=== PATIENT | female | born 1995 | race African-American/Black ===

== ENCOUNTER 2020-10-15 18:49 | Emergency (ER) | payer SELFPAY ==
[2020-10-15] MEDS ORDERED: KETOROLAC TROMETHAMINE INJ/PF 30 MG/1 ML SDV IV ONE (19:23)
[2020-10-15] MEDS ORDERED: ACETAMINOPHEN 325 MG TABLET PO ONE (19:23)
[2020-10-15] MEDS ORDERED: NORMAL SALINE 1000 ML 1,000 ML IV ONE ×2 (19:25→21:10)
--- NOTE | 2020-10-15 19:25 | ER Document Report ---
ED Medical Screen (RME) - General Stated Complaint: FEVER BODY PAIN HEADACHE Time Seen by Provider: 10/15/20 19:08 Information source: Patient Notes: Patient is a 25-year-old female comes emergency room complaint of being achy hot and chilling states she has had a fever because she knows she has been cold all day. She started with this yesterday. She denies any cough congestion runny nose dysuria shortness of breath or abdominal pain. But patient states she thinks she might have the flu/or pneumonia. She states she did not get her flu shot this year. She was tested for the coronavirus about 4 months ago and was negative at that time. She denies any known contacts with any coronavirus positive people. Patient states she hurts all over her body right now. Last menstrual period was 16 September. Patient does state that she smokes. Physical examination shows patient to be a well-nourished well-developed 25-year-old female no apparent distress but does appear appear somewhat uncomfortable and mildly ill. Cardiac: Patient is tachycardic at 123 bpm on monitor with no murmur auscultated. Lungs: Bilateral breath sounds are decreased throughout no rhonchi rales or wheeze. HEENT: Examination head and upper airway show nasal mucosa be mildly erythematous and edematous but no rhinorrhea or congestion noted. Posterior pharynx shows no erythema no exudates no encroachment upon the uvula and or erythema of the uvula although patient does show a fever blister on her right upper lip. I have greeted and performed a rapid initial assessment of this patient. A comprehensive ED assessment and evaluation of the patient, analysis of test results and completion of the medical decision making process will be conducted by additional ED providers. Dictation of this chart was performed using voice recognition software; therefore, there may be some unintended grammatical errors. Physical Exam - Vital signs Vitals: Temp Pulse Resp BP Pulse Ox 100.5 F H 123 H 18 127/75 H 98 10/15/20 18:56 10/15/20 18:56 10/15/20 18:56 10/15/20 18:56 10/15/20 18:56 Course - Vital Signs Vital signs: Temp Pulse Resp BP Pulse Ox 100.5 F H 123 H 18 127/75 H 98 10/15/20 18:56 10/15/20 18:56 10/15/20 18:56 10/15/20 18:56 10/15/20 18:56
--- NOTE | 2020-10-15 20:22 | RADIOLOGY REPORT (SQ) ---
EXAM DESCRIPTION: XR CHEST 1 VIEW COMPLETED DATE/TME: 10/15/2020 20:08 EXAM: CHEST SINGLE VIEW CLINICAL INDICATION: 25-year-old female with fever. TECHNIQUE: Single view, AP portable chest was obtained. COMPARISON: None. FINDINGS: Unremarkable cardiac and mediastinal silhouette. Heart size is normal. RIGHT chest wall port catheter tip terminates at the SVC RIGHT atrial junction. Small focal round opacity is identified at the level of the LEFT upper lobe measuring up to 3 cm raising the concern for consolidation secondary to infectious process, however the possibility of neoplasm cannot be excluded in the correct clinical setting. The remaining lungs are otherwise clear without focal opacity, pneumothorax or pleural effusions. The visualized bones are within normal limits. IMPRESSION: LEFT upper lobe opacity with differential and details as above.
[2020-10-15] MEDS ORDERED: IBUPROFEN 600 MG TABLET PO ONE (21:10)
[2020-10-15 21:12] LABS: ABSOLUTE LYMPHOCYTES (AUTO) 0.8 10^3/uL (0.5-4.7); ABSOLUTE MONOCYTES (AUTO) 0.9 10^3/uL (0.1-1.4); ABSOLUTE NEUT (AUTO) 4.6 10^3/uL (1.7-8.2); BASOPHILS % (AUTO) 0.7 % (0-2); HEMATOCRIT 35.5 % (36.0-47.0); HEMOGLOBIN 11.3 g/dL (12.0-15.5); LYMPHOCYTES % (AUTO) 13.1 % (13-45); MEAN CORPUSCULAR HEMOGLOBIN 28.6 pg (27.0-33.4); MEAN CORPUSCULAR HGB CONC 31.7 g/dL (32.0-36.0); MEAN CORPUSCULAR VOLUME 90 fl (80-97); MONOCYTES % (AUTO) 13.6 % (3-13); PLATELET COUNT 125 10^3/uL (150-450); RED BLOOD COUNT 3.95 10^6/uL (3.72-5.28); RED CELL DISTRIBUTION WIDTH 21.4 % (11.5-14.0); SEGMENTED NEUTROPHILS % (AUTO) 72.6 % (42-78); TOTAL CELLS COUNTED % (AUTO) 100 %; WHITE BLOOD COUNT 6.3 10^3/uL (4.0-10.5)
[2020-10-15 21:28] LABS: A TYPE INFLUENZA AG NEGATIVE (NEGATIVE); ALBUMIN 4.2 g/dL (3.5-5.0); ALKALINE PHOSPHATASE 162 U/L (38-126); ANION GAP 15 (5-19); ASPARTATE AMINO TRANSFERASE 54 U/L (14-36); B INFLUENZA AG NEGATIVE (NEGATIVE); BILIRUBIN,DIRECT 0.2 mg/dL (0.0-0.4); BILIRUBIN,TOTAL 0.5 mg/dL (0.2-1.3); BLOOD UREA NITROGEN 15 mg/dL (7-20); CALCIUM 9.7 mg/dL (8.4-10.2); CARBON DIOXIDE 19 mmol/L (22-30); CHLORIDE 96 mmol/L (98-107); CREATINE KINASE 118 U/L (30-135); POTASSIUM 5.2 mmol/L (3.6-5.0); TOTAL PROTEIN 7.3 g/dL (6.3-8.2)
[2020-10-15 21:51] LABS: GLUCOSE 553 mg/dL (75-110)
[2020-10-15 21:52] LABS: APPEARANCE,URINE CLEAR; BILIRUBIN,URINE NEGATIVE (NEGATIVE); COLOR,URINE STRAW; GLUCOSE, URINE >=500 mg/dL (NEGATIVE); KETONES,URINE 80 mg/dL (NEGATIVE); LEUKOCYTE ESTERASE,URINE NEGATIVE (NEGATIVE); NITRITE,URINE NEGATIVE (NEGATIVE); PROTEIN,URINE NEGATIVE (NEGATIVE); URINE SPECIFIC GRAVITY 1.023; UROBILINOGEN,URINE NEGATIVE mg/dL (<2.0)
[2020-10-15] MEDS ORDERED: INSULIN LISPRO 100 UNIT/ML 3 ML VIAL SUBCUT ONE (22:30)
[2020-10-15 22:42] LABS: VENOUS BLOOD BASE EXCESS -10.4 mmol/L; VENOUS BLOOD HCO3 15.4 mmol/L (20-32); VENOUS BLOOD PCO2 33.9 mmHg (35-63); VENOUS BLOOD PH 7.28 (7.30-7.42)
--- NOTE | 2020-10-16 00:44 | RADIOLOGY REPORT (SQ) ---
CT ANGIOGRAM CHEST WITH IV CONTRAST: 10/15/2020 11:24 PM SLIP FEEDER HISTORY: 25-year old patient with concern for left upper lobe mass. TECHNIQUE: Postcontrast CT through the chest was performed per protocol for CT angiography. 3D Multiplanar reformations were performed at the workstation. Reconstructed sagittal and coronal images were also obtained through the chest. This exam was performed according to our departmental dose-optimization program, which includes automated exposure control, adjustment of the mA and/or KV according to the patient's size and/or use of iterative reconstruction technique. COMPARISON: None available FINDINGS: The heart size is enlarged. No large pericardial effusion is seen. No significant mediastinal, supraclavicular, or axillary lymphadenopathy is seen. The thoracic aorta is within normal limits of size. No filling defects are seen within the pulmonary arteries to suggest a pulmonary artery embolism. The main pulmonary artery is at the upper limits of normal in size. A right subclavian [id number]-Synb catheter tip projects near the SVC/right atrial junction. The thyroid gland is unremarkable. The central tracheobronchial tree is patent. There are diffuse groundglass changes within the lungs subpleural masslike opacity measuring at least 3.3 x 2.4 cm at the left upper lobe. No large effusion is seen. There is no evidence of a pneumothorax. The bones demonstrate no suspicious lytic or blastic lesion. The visualized portions of the upper abdomen appear grossly unremarkable. There is elevation of the right hemidiaphragm noted. IMPRESSION: There is a round masslike opacity at the left upper lobe which has some peripheral groundglass attenuation. This may reflect infection, though interval follow-up is recommended to exclude a mass. There are diffuse groundglass changes within the lungs which may reflect edema, inflammation, or infection. No filling defect is seen to suggest a pulmonary artery embolism.
--- NOTE | 2020-10-16 01:18 | ER Document Report ---
ED General - General Chief Complaint: Fever Stated Complaint: FEVER BODY PAIN HEADACHE Time Seen by Provider: 10/15/20 19:08 Notes: 25-year-old female with type 1 diabetes presents with 2 days of fever, diffuse myalgia, nausea, diffuse weakness and generalized malaise. Patient has been buying insulin without a prescription from the pharmacy and has not seen a doctor anytime recently. Had several episodes of vomiting prior to arrival and her glucometer was reading "high" but then says it came down prior to arriving in the ED but patient still felt "lousy ". Patient has had similar symptoms when she has had infections that have precipitated DKA and/or hyperglycemia. Patient denies any cough, chest pain, shortness of breath, sick contacts, abdominal or pelvic pain, diarrhea or constipation, dysuria, frequency, urgency, neck pain or stiffness, headache, drug use - Related Data Allergies/Adverse Reactions: fentanyl Allergy (Verified 10/15/20 20:15) ketorolac [From Toradol] Allergy (Verified 10/15/20 20:15) metoclopramide [From Reglan] Adverse Reaction (Verified 10/15/20 20:15) ondansetron [From Zofran] Adverse Reaction (Verified 10/15/20 20:16) Home Medications: insulin Past Medical History - General Information source: Patient - Social History Smoking Status: Current Every Day Smoker Family History: Reviewed & Not Pertinent Endocrine Medical History: Reports: Hx Diabetes Mellitus Type 1 Review of Systems - Review of Systems Notes: REVIEW OF SYSTEMS: CONSTITUTIONAL : + fever, chills, or sweats. EENT: Denies recent cold/sinus symptoms, denies throat pain CARDIOVASCULAR: Denies chest pain, KEMAL RESPIRATORY: Denies cough, denies shortness of breath. GASTROINTESTINAL: Denies abdominal pain, +nausea/vomiting. GENITOURINARY: Denies difficulty urinating, painful urination. FEMALE GENITOURINARY: Denies abnormal vaginal bleeding, vaginal discharge. MUSCULOSKELETAL: Denies neck pain, injuries SKIN: Denies rash or skin lesions. HEMATOLOGIC : Denies easy bruising or bleeding. LYMPHATIC: Denies swollen, enlarged glands. NEUROLOGICAL: Denies headache, denies change in gait. PSYCHIATRIC: Denies anxiety or stress or depression. Physical Exam - Vital signs Vitals: Temp Pulse Resp BP Pulse Ox 100.5 F H 123 H 18 127/75 H 98 10/15/20 18:56 10/15/20 18:56 10/15/20 18:56 10/15/20 18:56 10/15/20 18:56 - Notes Notes: PHYSICAL EXAMINATION: GENERAL: Uncomfortable appearing young adult female in no acute distress HEAD: Atraumatic, normocephalic. EYES: Pupils equal round and appropriate constriction, sclera anicteric, conjunctiva are normal. ENT: nares patent, dry mucous membranes. NECK/BACK: Normal range of motion, supple without lymphadenopathy, no midline C/T/L/S spinal tenderness or deformity LUNGS: Breath sounds clear to auscultation bilaterally and equal. No wheezes rales or rhonchi. Normal respiratory rate and effort HEART: Mildly tachycardic rate with regular rhythm without murmurs, rubs, or gallops ABDOMEN: Soft, nontender, no guarding, no masses, no CVAT EXTREMITIES: Normal range of motion, no pitting or edema. No cyanosis. NEUROLOGICAL: Awake, alert, conversing appropriately, moves all extremities spontaneously. PSYCH: Normal mood, normal affect. SKIN: Warm, Dry, normal turgor, no rashes or lesions noted. Course - Re-evaluation Re-evalutation: 10/16/20 01:57 Patient with vomiting and hyperglycemia associated with few days of constellation of symptoms concerning for possible COVID-19 infection versus influenza. Rule out DKA, significant electrolyte abnormalities, rhabdomyolysis. Patient with diffuse lower bilateral back pain but also has diffuse body pain and no urinary symptoms or CVA tenderness and no midline back pain and no neuro symptoms. patient's tachycardia improved with fever control and hydration and now has normal pulse rate. Patient had no PE symptoms but patient's chest x-ray showed a possible mass/opacification and given likely COVID-19 infection and hypercoagulability associated with this disease I obtained a CTA chest for rule out PE to further evaluate this opacification and rule out a pulmonary infarct causing it. CTA chest showed diffuse groundglass opacities. Patient's labs all borderline for DKA and most likely represent dehydration from fever and hyperglycemia, but given that patient has no outpatient follow-up and has poor diabetes management and high ability to fall into full-blown DKA if discharged I presented patient to Dr. Maher who has accepted patient to observation. Patient feels improved after fluids, no additional episodes of vomiting in ED, vital signs normal, exam improved with patient more comfortable now and tachycardia resolved. The patient was evaluated during the global COVID-19 pandemic and that diagnosis was suspected/considered upon their initial presentation. Their evaluation, treatment and testing was consistent with current guidelines for patients who present with complaints or symptoms that may be related to COVID-19. - Vital Signs Vital signs: Temp Pulse Resp BP Pulse Ox 99.2 F 123 H 18 127/75 H 98 10/15/20 22:26 10/15/20 18:56 10/15/20 18:56 10/15/20 18:56 10/15/20 18:56 - Laboratory Result Diagrams: 10/15/20 20:40 10/15/20 20:40 Laboratory results interpreted by me: 10/15/20 10/15/20 10/15/20 20:40 20:40 21:25 Hgb 11.3 L Hct 35.5 L MCHC 31.7 L RDW 21.4 H Plt Count 125 L [place] % (Auto) 13.6 H VBG pH VBG pCO2 VBG HCO3 Sodium 129.6 L Potassium 5.2 H Chloride 96 L Carbon Dioxide 19 L Glucose 553 H* AST 54 H ALT 53 H Alkaline Phosphatase 162 H Urine Glucose (UA) >=500 H Urine Ketones 80 H Urine Blood SMALL H 10/15/20 22:05 Hgb Hct MCHC RDW Plt Count [place] % (Auto) VBG pH 7.28 L VBG pCO2 33.9 L VBG HCO3 15.4 L Sodium Potassium Chloride Carbon Dioxide Glucose AST ALT Alkaline Phosphatase Urine Glucose (UA) Urine Ketones Urine Blood Discharge - Discharge Clinical Impression: Hyperglycemia, Dehydration, COVID-19 determined by clinical diagnostic criteria Disposition: ADMITTED OBSERVATION Admitting Provider: [facility] Unit Admitted: Medical Floor
[2020-10-16] MEDS ORDERED: ACETAMINOPHEN 325 MG TABLET PO PRN (03:29)
[2020-10-16] MEDS ORDERED: DEXTROSE 40% GEL 15 GM TUBE PO PRN ×2 (03:38)
[2020-10-16] MEDS ORDERED: GLUCAGON,HUMAN RECOMB 1 MG INJ IM PRN (03:38)
[2020-10-16] MEDS ORDERED: DEXTROSE 50%-WATER 25 GM/50 ML DISP.SYRIN IV PRN ×2 (03:38)
[2020-10-16] MEDS ORDERED: INSULIN GLARGINE,HUM.REC.ANLOG 1,000 UNIT/10 ML VIAL SUBCUT SCH (03:45)
--- NOTE | 2020-10-16 03:49 | PDOC H&P ---
History of Present Illness Admission Date/PCP: 10/16/20 02:20 Patient complains of: Generalized body aches History of Present Illness: MICHAEL VASQUEZ is a 25 year old female with a history of type 1 diabetes now presents with 2 days duration of generalized body aches, nausea, vomiting, abdominal pain, fever of 100.3. She states that she has been feeling generally feeling well and did not take her insulin for the past 24 hours. Currently she has no primary care and she has not been able to afford her insulin. Mostly she gets insulin [id number]. She states at the place where her sister works many of her coworkers have been diagnosed with COVID-19 but her sister has not been diagnosed or have any symptoms. She denies any chest pain, shortness of breath, palpitation, dizziness dysuria, diarrhea, hematemesis, melena, hematochezia or any skin rash. Past Medical History Endocrine Medical History: Reports: Diabetes Mellitus Type 1 Social History Information Source: Patient Smoking Status: Current Every Day Smoker Frequency of Alcohol Use: None Drugs: None - Advance Directive Resuscitation Status: Full Code Family History Family History: Reviewed & Not Pertinent Parental Family History Reviewed: Yes Children Family History Reviewed: Yes Sibling(s) Family History Reviewed.: Yes Medication/Allergy Allergies/Adverse Reactions: fentanyl Allergy (Verified 10/15/20 20:15) ketorolac [From Toradol] Allergy (Verified 10/15/20 20:15) metoclopramide [From Reglan] Adverse Reaction (Verified 10/15/20 20:15) ondansetron [From Zofran] Adverse Reaction (Verified 10/15/20 20:16) Review of Systems Constitutional: PRESENT: as per HPI, fatigue, fever(s), weakness. ABSENT: anorexia, chills, headache(s), night sweats Eyes: ABSENT: visual disturbances Ears: ABSENT: hearing changes Nose, Mouth, and Throat: ABSENT: headache(s), mouth pain, sore throat Cardiovascular: ABSENT: chest pain, dyspnea on exertion, edema, orthropnea, palpitations Respiratory: ABSENT: cough, hemoptysis Gastrointestinal: PRESENT: as per HPI Genitourinary: ABSENT: dysuria, hematuria Musculoskeletal: ABSENT: joint swelling Integumentary: ABSENT: rash, wounds Neurological: ABSENT: abnormal gait, abnormal speech, confusion, dizziness, focal weakness, syncope Psychiatric: ABSENT: anxiety, depression, homidical ideation, suicidal ideation Endocrine: PRESENT: polydipsia, polyuria. ABSENT: cold intolerance, heat intolerance Hematologic/Lymphatic: ABSENT: easy bleeding, easy bruising Physical Exam Vital Signs: Temp Pulse Resp BP Pulse Ox 98.2 F 99 16 126/80 H 97 10/16/20 01:08 10/16/20 01:08 10/16/20 01:08 10/16/20 01:08 10/16/20 01:08 Intake & Output 10/14/20 10/15/20 10/16/20 06:59 06:59 06:59 Intake Total 1999 Balance 1999 Weight 61.235 kg Additional comments: GENERAL APPEARANCE: Alert and oriented x3, in no acute distress HEENT: Normocephalic and atraumatic. No scleral icterus. Dry oral mucosa NECK: Supple. No lymphadenopathy or tenderness. No JVD CHEST: Symmetric. Nontender to palpation. LUNGS: Clear with good air entry bilaterally. No wheezing or crackles HEART: Regular rate and rhythm with normal S1 and S2. No murmurs, gallops, or rubs. ABDOMEN: Flat, soft, active bowel sounds, no direct or rebound tenderness. No organomegaly detected. No CVA tenderness EXTREMITIES: No cyanosis, clubbing, or edema. MUSCULOSKELETAL: No deformity, atrophy or swelling noted PSYCHIATRIC: Recent and remote memory is intact. Appropriate mood and affect. SKIN: Warm, dry, and well perfused. No lesions or rashes are noted. NEUROLOGIC: No focal sensory or motor deficits are noted. Results Laboratory Results: 10/15/20 20:40 10/15/20 20:40 10/15/20 10/15/20 10/15/20 20:40 20:40 20:40 WBC 6.3 RBC 3.95 Hgb 11.3 L Hct 35.5 L MCV 90 MCH 28.6 MCHC 31.7 L RDW 21.4 H Plt Count 125 L Seg Neutrophils % 72.6 VBG pH VBG pCO2 VBG HCO3 VBG Base Excess Sodium 129.6 L Potassium 5.2 H Chloride 96 L Carbon Dioxide 19 L Anion Gap 15 BUN 15 Creatinine 0.81 Est GFR ( Amer) > 60 Glucose 553 H* Lactic Acid 1.0 Calcium 9.7 Total Bilirubin 0.5 AST 54 H Alkaline Phosphatase 162 H Total Protein 7.3 Albumin 4.2 Urine Color Urine Appearance Urine pH Ur Specific [place] Urine Protein Urine Glucose (UA) Urine Ketones Urine Blood Urine Nitrite Ur Leukocyte Esterase Urine WBC (Auto) Urine RBC (Auto) 10/15/20 10/15/20 21:25 22:05 WBC RBC Hgb Hct MCV MCH MCHC RDW Plt Count Seg Neutrophils % VBG pH 7.28 L VBG pCO2 33.9 L VBG HCO3 15.4 L VBG Base Excess -10.4 Sodium Potassium Chloride Carbon Dioxide Anion Gap BUN Creatinine Est GFR ( Amer) Glucose Lactic Acid Calcium Total Bilirubin AST Alkaline Phosphatase Total Protein Albumin Urine Color STRAW Urine Appearance CLEAR Urine pH 6.0 Ur Specific [place] 1.023 Urine Protein NEGATIVE Urine Glucose (UA) >=500 H Urine Ketones 80 H Urine Blood SMALL H Urine Nitrite NEGATIVE Ur Leukocyte Esterase NEGATIVE Urine WBC (Auto) 0 Urine RBC (Auto) 1 10/15/20 20:40 Creatine Kinase 118 Impressions: Chest X-Ray 10/15/20 19:24 IMPRESSION: LEFT upper lobe opacity with differential and details as above. Chest/Abdomen CTA 10/15/20 23:25 IMPRESSION: There is a round masslike opacity at the left upper lobe which has some peripheral groundglass attenuation. This may reflect infection, though interval follow-up is recommended to exclude a mass. There are diffuse groundglass changes within the lungs which may reflect edema, inflammation, or infection. No filling defect is seen to suggest a pulmonary artery embolism. Assessment and Plan - Diagnosis (1) Type 1 diabetes mellitus with hyperglycemia Is this a current diagnosis for this admission?: Yes Plan: Random blood sugar on presentation was 533 VBG showed a pH of 7.28, anion gap was 16, bicarb 19 taken was positive Patient at this point borderline to get into DKA Received 2 L of IV fluid at the ED Restarted her on Lantus 25 nightly Sliding scale insulin Hypoglycemia protocol, Accu-Cheks Diabetic diet Closely monitor BMP (2) Suspected COVID-19 virus infection Is this a current diagnosis for this admission?: Yes Plan: Patient presents with symptoms concerning for COVID-19 Sample has been obtained at the ED and follow-up with the results Currently well on room air Continue supportive treatment for fever (3) Nausea and vomiting Is this a current diagnosis for this admission?: Yes Plan: Likely due to hyperglycemia Promethazine 12.5 orally as needed (4) Volume depletion Is this a current diagnosis for this admission?: Yes Plan: Due to GI loss from nausea and vomiting and osmotic diuresis Patient has been hydrated with 2 L of crystalloid fluid at the ED Continue IV hydration at 125 mL/h (5) Mass of upper lobe of left lung Is this a current diagnosis for this admission?: Yes Plan: CT chest showed left upper lobe opacity with surrounding area of groundglass likely due to an infectious process Patient denies any cough, hemoptysis or any change in her weight recently and is a non-smoker Could be due to aspiration vs bacterial pneumonia Currently on Levaquin Patient will need follow-up imaging per radiology recommendation - Time Time Spent with patient: 35 or more minutes Total Critical Time (Minutes): 40 Medications reviewed and adjusted accordingly: Yes Anticipated Discharge Disposition: Home, Self Care Anticipated Discharge Timeframe: within 48 hours - Inpatient Certification Based on my medical assessment, after consideration of the patient's comorbidities, presenting symptoms, or acuity I expect that the services needed warrant INPATIENT care.: Yes I certify that my determination is in accordance with my understanding of Medicare's requirements for reasonable and necessary INPATIENT services [42 CFR 412.3e].: Yes Medical Necessity: Need Close Monitoring Due to Risk of Patient Decompensation, Need For IV Fluids, Need for IV Antibiotics, Risk of Complication if Not Cared For in Hospital Post Hospital Care: D/C or Transfer Summary
[2020-10-16] MEDS: INSULIN REG, HUMAN 100 UNIT/ML 3 ML VIAL (PYX) SUBCUT SCH ×4 (03:59→16:35)
[2020-10-16] MEDS ORDERED: LEVOFLOXACIN 750 MG/D5W RTU 750 MG/150 ML RTUPB IV SCH (04:00)
[2020-10-16] MEDS ORDERED: PROMETHAZINE HCL INJ 25 MG/1 ML VIAL ONE (06:28)
[2020-10-16] MEDS ORDERED: PROMETHAZINE HCL INJ 25 MG/1 ML VIAL IV ONE (06:30)
[2020-10-16] MEDS: NORMAL SALINE 1000 ML 1,000 ML IV PRN ×2 (06:41→16:13)
[2020-10-16 06:59] LABS: ANION GAP 11 (5-19); BLOOD UREA NITROGEN 12 mg/dL (7-20); CALCIUM 8.3 mg/dL (8.4-10.2); CARBON DIOXIDE 20 mmol/L (22-30); CHLORIDE 103 mmol/L (98-107); GLUCOSE 256 mg/dL (75-110); POTASSIUM 4.3 mmol/L (3.6-5.0)
[2020-10-16] MEDS ORDERED: MORPHINE SULFATE 10 MG/ML INJ IV ONE (07:00)
[2020-10-16] MEDS ORDERED: ENOXAPARIN SODIUM INJ 40 MG/0.4 ML DISP.SYRIN SUBCUT SCH (10:00)
[2020-10-16] MEDS ORDERED: FAMOTIDINE 20 MG TABLET PO SCH (10:00)
[2020-10-16] MEDS ORDERED: KETOROLAC TROMETHAMINE INJ/PF 30 MG/1 ML SDV IV ONE (11:57)
[2020-10-16] MEDS ORDERED: ONDANSETRON HCL INJ/PF 4 MG/2 ML SDV IV PRN (11:58)
[2020-10-16] MEDS ORDERED: MORPHINE SULFATE 10 MG/ML INJ IV PRN (15:33)
[2020-10-16] MEDS ORDERED: PROMETHAZINE HCL INJ 25 MG/1 ML VIAL IV PRN (15:34)
--- NOTE | 2020-10-16 21:53 | PDOC DISCHARGE SUMMARY ---
Impression - Admit/DC Date/PCP Admission Date/Primary Care Provider: 10/16/20 02:20 Discharge Date: 10/16/20 - Discharge Diagnosis (1) COVID-19 determined by clinical diagnostic criteria Is this a current diagnosis for this admission?: Yes (2) Dehydration Is this a current diagnosis for this admission?: Yes (3) Mass of upper lobe of left lung Is this a current diagnosis for this admission?: Yes (4) Nausea and vomiting Is this a current diagnosis for this admission?: Yes (5) Suspected COVID-19 virus infection Is this a current diagnosis for this admission?: Yes (6) Type 1 diabetes mellitus with hyperglycemia Is this a current diagnosis for this admission?: Yes (7) Volume depletion Is this a current diagnosis for this admission?: Yes - Additional Information Resuscitation Status: Full Code Discharge Diet: Diabetic Discharge Activity: Other - Usual precautions for COVID-19, such as wearing a mask, social distancing, handwashing, self-isolation Home Medications: Insulin Glargine,Hum.rec.anlog [Lantus Insulin 100 Unit/1 ml 10 ml] 20 unit SUBCUT DAILY 10/16/20 Insulin Lispro [Humalog Insulin (Lispro) 100 unit/mL] 15 unit SUBCUT AC 10/16/20 History of Present Illiness History of Present Illness: MICHAEL VASQUEZ is a 25 year old female with a history of type 1 diabetes now presents with 2 days duration of generalized body aches, nausea, vomiting, abdominal pain, fever of 100.3. She states that she has been feeling generally feeling well and did not take her insulin for the past 24 hours. Currently she has no primary care and she has not been able to afford her insulin. Mostly she gets insulin [id number]. She states at the place where her sister works many of her coworkers have been diagnosed with COVID-19 but her sister has not been diagnosed or have any symptoms. She denies any chest pain, shortness of breath, palpitation, dizziness dysuria, diarrhea, hematemesis, melena, hematochezia or any skin rash. Hospital Course Hospital Course: Her metabolic panel and blood glucose corrected quickly. She is no longer nauseated or vomiting. Her vital signs are stable and her pulse oximetry is in the upper 90s on room air. She denies any shortness of breath. She says that she has insulin, insulin syringes and supplies, and a blood glucose meter with test strips. She said she missed her insulin for a day. She is visiting from the [place] area and plans to return on Monday. At time of discharge she was only on Lantus and sliding scale like she is on at home. She is no longer nauseated or vomiting and was able to eat and drink without difficulty. I reviewed the warning signs for her breathing to which she should pay attention, and advised her to seek medical attention in the event that the symptoms occur. Her primary care provider is in [place] and I encouraged her to get a follow-up visit as soon as she is able, preferably within the next week. She was wanting to go home, and from a clinical standpoint she seems well enough to do so at this time. Physical Exam Vital Signs: Temp Pulse Resp BP Pulse Ox 98.1 F 99 14 135/85 H 98 10/16/20 17:00 10/16/20 01:08 10/16/20 19:00 10/16/20 18:18 10/16/20 19:00 Intake & Output 10/15/20 10/16/20 10/17/20 06:59 06:59 06:59 Intake Total 2150 1000 Output Total 150 Balance 2000 1000 Weight 61.235 kg General appearance: PRESENT: no acute distress, cooperative, thin Respiratory exam: PRESENT: clear to auscultation aleksandar, symmetrical, unlabored. ABSENT: accessory muscle use, chest wall tenderness, crackles, prolonged expiratory phas, rhonchi, tachypnea, wheezes Cardiovascular exam: PRESENT: RRR, +S1, +S2 Pulses: PRESENT: normal carotid pulses Vascular exam: PRESENT: normal capillary refill GI/Abdominal exam: PRESENT: normal bowel sounds, soft. ABSENT: distended, guarding, rebound, tenderness Extremities exam: ABSENT: clubbing, pedal edema Musculoskeletal exam: PRESENT: normal inspection. ABSENT: deformity Neurological exam: PRESENT: awake, oriented to person, oriented to place, oriented to time, oriented to situation, CN II-XII grossly intact. ABSENT: motor sensory deficit Psychiatric exam: PRESENT: appropriate affect, normal mood Skin exam: PRESENT: dry, warm Results Laboratory Results: WBC 6.3 10^3/uL (4.0-10.5) 10/15/20 20:40 RBC 3.95 10^6/uL (3.72-5.28) 10/15/20 20:40 Hgb 11.3 g/dL (12.0-15.5) L 10/15/20 20:40 Hct 35.5 % (36.0-47.0) L 10/15/20 20:40 MCV 90 fl (80-97) 10/15/20 20:40 MCH 28.6 pg (27.0-33.4) 10/15/20 20:40 MCHC 31.7 g/dL (32.0-36.0) L 10/15/20 20:40 RDW 21.4 % (11.5-14.0) H 10/15/20 20:40 Plt Count 125 10^3/uL (150-450) L 10/15/20 20:40 Lymph % (Auto) 13.1 % (13-45) 10/15/20 20:40 [place] % (Auto) 13.6 % (3-13) H 10/15/20 20:40 Eos % (Auto) 0.0 % (0-6) 10/15/20 20:40 Baso % (Auto) 0.7 % (0-2) 10/15/20 20:40 Absolute Neuts (auto) 4.6 10^3/uL (1.7-8.2) 10/15/20 20:40 Absolute Lymphs (auto) 0.8 10^3/uL (0.5-4.7) 10/15/20 20:40 Absolute Monos (auto) 0.9 10^3/uL (0.1-1.4) 10/15/20 20:40 Absolute Eos (auto) 0.0 10^3/uL (0.0-0.6) 10/15/20 20:40 Absolute Basos (auto) 0.0 10^3/uL (0.0-0.2) 10/15/20 20:40 Seg Neutrophils % 72.6 % (42-78) 10/15/20 20:40 D-Dimer 0.50 ug/mL (0.00-0.50) 10/15/20 22:05 VBG pH 7.28 (7.30-7.42) L 10/15/20 22:05 VBG pCO2 33.9 mmHg (35-63) L 10/15/20 22:05 VBG HCO3 15.4 mmol/L (20-32) L 10/15/20 22:05 VBG Base Excess -10.4 mmol/L 10/15/20 22:05 Sodium 133.7 mmol/L (137-145) L 10/16/20 06:08 Potassium 4.3 mmol/L (3.6-5.0) 10/16/20 06:08 Chloride 103 mmol/L (98-107) 10/16/20 06:08 Carbon Dioxide 20 mmol/L (22-30) L 10/16/20 06:08 Anion Gap 11 (5-19) 10/16/20 06:08 BUN 12 mg/dL (7-20) 10/16/20 06:08 Creatinine 0.68 mg/dL (0.52-1.25) 10/16/20 06:08 Est GFR ( Amer) > 60 (>60) 10/16/20 06:08 Est GFR (MDRD) Non-Af > 60 (>60) 10/16/20 06:08 Glucose 256 mg/dL (75-110) H 10/16/20 06:08 POC Glucose 213 mg/dL (70-110) H 10/16/20 20:12 Lactic Acid 1.0 mmol/L (0.7-2.1) 10/15/20 20:40 Calcium 8.3 mg/dL (8.4-10.2) L 10/16/20 06:08 Total Bilirubin 0.5 mg/dL (0.2-1.3) 10/15/20 20:40 Direct Bilirubin 0.2 mg/dL (0.0-0.4) 10/15/20 20:40 Neonat Total Bilirubin Not Reportable 10/15/20 20:40 Neonat Direct Bilirubin Not Reportable 10/15/20 20:40 Neonat Indirect Bili Not Reportable 10/15/20 20:40 AST 54 U/L (14-36) H 10/15/20 20:40 ALT 53 U/L (<35) H 10/15/20 20:40 Alkaline Phosphatase 162 U/L (38-126) H 10/15/20 20:40 Creatine Kinase 118 U/L (30-135) 10/15/20 20:40 Total Protein 7.3 g/dL (6.3-8.2) 10/15/20 20:40 Albumin 4.2 g/dL (3.5-5.0) 10/15/20 20:40 Urine Color STRAW 10/15/20 21:25 Urine Appearance CLEAR 10/15/20 21:25 Urine pH 6.0 (5.0-9.0) 10/15/20 21:25 Ur Specific [place] 1.023 10/15/20 21:25 Urine Protein NEGATIVE mg/dL (NEGATIVE) 10/15/20 21:25 Urine Glucose (UA) >=500 mg/dL (NEGATIVE) H 10/15/20 21:25 Urine Ketones 80 mg/dL (NEGATIVE) H 10/15/20 21:25 Urine Blood SMALL (NEGATIVE) H 10/15/20 21:25 Urine Nitrite NEGATIVE (NEGATIVE) 10/15/20 21:25 Urine Bilirubin NEGATIVE (NEGATIVE) 10/15/20 21:25 Urine Urobilinogen NEGATIVE mg/dL (<2.0) 10/15/20 21:25 Ur Leukocyte Esterase NEGATIVE (NEGATIVE) 10/15/20 21:25 Urine WBC (Auto) 0 /HPF 10/15/20 21:25 Urine RBC (Auto) 1 /HPF 10/15/20 21:25 Squamous Epi Cells Auto 1 /HPF 10/15/20 21:25 Urine Mucus (Auto) RARE /LPF 10/15/20 21:25 Urine Ascorbic Acid NEGATIVE (NEGATIVE) 10/15/20 21:25 Urine HCG, Qual NEGATIVE (NEGATIVE) 10/15/20 21:25 COVID-19 Source Cancelled 10/15/20 20:47 COVID-19 (YANI) Cancelled 10/15/20 20:47 Influenza A (Rapid) NEGATIVE (NEGATIVE) 10/15/20 20:40 Influenza A (RT-PCR) NEGATIVE (NEGATIVE) 10/15/20 20:47 Influenza B (Rapid) NEGATIVE (NEGATIVE) 10/15/20 20:40 Influenza B (RT-PCR) NEGATIVE (NEGATIVE) 10/15/20 20:47 RSV (RT-PCR) NEGATIVE (NEGATIVE) 10/15/20 20:47 SARS-CoV-2 Rap RNA(RT-PCR) POSITIVE (NEGATIVE) H 10/15/20 20:47 Group A Strep Rapid NEGATIVE (NEGATIVE) 10/15/20 21:25 Impressions: Chest X-Ray 10/15/20 19:24 IMPRESSION: LEFT upper lobe opacity with differential and details as above. Chest/Abdomen CTA 10/15/20 23:25 IMPRESSION: There is a round masslike opacity at the left upper lobe which has some peripheral groundglass attenuation. This may reflect infection, though interval follow-up is recommended to exclude a mass. There are diffuse groundglass changes within the lungs which may reflect edema, inflammation, or infection. No filling defect is seen to suggest a pulmonary artery embolism. Plan Time Spent: Greater than 30 Minutes Stroke Is this a Stroke Patient?: No Acute Heart Failure Is this a Heart Failure Patient?: No
[2020-10-16 23:01] VITALS: BP 143/98
== END 2020-10-16 23:00 | disposition admitted as inpatient to this hospital (09) ==
LOC: ER 18:49 → UNDOADMOB 10-16 02:20 → EH 10-16 02:20 → UNDOADMOB 10-16 03:29 → EH 10-16 03:29 → ER 10-16 23:00
DX: U07.1 COVID-19 (principal); R50.9 Fever, unspecified; R51.9 Headache, unspecified; R00.0 Tachycardia, unspecified
CPT/HCPCS: 99285; 36415; 87040; 87070; 87086; 87880; 82962; 82550; 83605; 85025; 0241U ×4; 81025; 80048; 80053; 81001; 85379; 82803; 87804; 71045; 71275; J1815 ×3; J2270; J1650; J2550; J7030 ×2; J1956; J1642; C9803; 87635; G0378